=== PATIENT | male | born 1970 | race African-American/Black ===

== ENCOUNTER 2016-05-01 09:19 | Emergency (ER) ==
[2016-05-01 09:46] LABS: MANUAL DIFF NEEDED? NO
[2016-05-01 09:53] LABS: BASO% 0.1 % (0.0-0.8); EOS# 0.01 X1000 (0.0-0.7); EOS% 0.1 % (0.0-10.0); HEMATOCRIT 51.9 % (42.0-52.0); HEMOGLOBIN 17.6 g/dL (14.0-18.0); IMM GRAN# 0.02 X1000 (0.0-0.04); IMM GRAN% 0.2 % (0.0-0.5); LYMPH# 1.81 X1000 (1.2-3.4); LYMPH% 17.7 % (20.5-51.1); MCH 29.2 PG (27-31); MCHC 33.9 g/dL (33-37); MCV 86.2 FL (81-99); MONO# 1.16 X1000 (0.11-0.59); MONO% 11.3 % (1.7-9.3); MPV 10.1 FL (7.4-10.4); NEUT% 70.6 % (42.2-75.2); PLT 280 X1000 (130-400); RBC 6.02 XMIL (4.7-6.1)
[2016-05-01 10:19] LABS: ALBUMIN 5.1 g/dL (3.5-5.0); CALCIUM 10.1 mg/dL (8.8-10.2); POTASSIUM 4.7 mmol/L (3.5-5.1); TOTAL BILIRUBIN 0.35 mg/dL (0.20-1.00); TOTAL PROTEIN 9.9 g/dL (6.3-8.3)
[2016-05-01] MEDS ORDERED: NS 3,000 ML IV ONE ×2 (11:22→14:38)
[2016-05-01] MEDS ORDERED: ZOFRAN IV ONE (11:23)
--- NOTE | 2016-05-01 11:30 | PROVIDER DOCUMENTATION ---
HPI-Abdominal Pain/GI Problem - General Chief Complaint: N/V/D Stated Complaint: N/V/D Time Seen by Provider: 05/01/16 11:21 Source: patient Allergies/Adverse Reactions: Patient Allergies Allergy/AdvReac Type Severity Reaction Status Date / Time No Known Allergies Allergy Verified 03/21/15 17:31 Home Medications: Home Medication List Medication Instructions Recorded Confirmed Last Taken Type No Home Medications 05/01/16 05/01/16 Unknown History - History of Present Illness-ABD Nature of Presenting Problems: Reports to er with cc of n,v,d x 2 days with upper abd cramps. Denies fever, constipation,sob. Abdominal Pain Onset Location: reports: RUQ, LUQ Quality of Pain: reports: aching Severity in ED: reports: moderate Onset/Duration: reports: 2 days ago Timing: reports: still present Associated Symptoms: reports: diarrhea, nausea, vomiting Bruising or Bleeding Gums?: No Similar Symptoms Previously?: No Recently seen or treated by another doctor?: No Review of Systems - Adult - REVIEW OF SYSTEMS - ADULT Constitutional: denies: chills, fever, fatique Eyes: reports: no symptoms reported Ears, Nose, Mouth & Throat: reports: no symptoms reported Cardiovascular: denies: chest pain, irregular heart rate, orthopnea Respiratory: denies: cough, shortness of breath, wheezing Gastrointestinal: reports: abdominal pain, diarrhea, nausea, vomiting Genitourinary: denies: dysuria, flank pain, frequent UTI's, hematuria Musculoskeletal: reports: no symptoms reported Integumentary: reports: no symptoms reported Neurological: reports: no symptoms reported Psychiatric: reports: no symptoms reported Endocrine: reports: no symptoms reported Hematologic/Lymphatic: reports: no symptoms reported Allergic/Immunologic: reports: no symptoms reported All Other Systems: Reviewed and Negative Past History - Adult - PAST MEDICAL HISTORY-ADULT Review of Records: reports: Nursing Assessment Review, Medications Reviewed Major Childhood Illnesses: reports: denies history Cardiovascular: reports: denies history Respiratory: reports: denies history Gastrointestinal: reports: denies history Obstetrical/Gynecological: reports: denies history Genitourinary: reports: denies history Musculoskeletal: reports: denies history Neurological: reports: denies history Endocrine/Immune: reports: denies history Other Conditions: reports: denies history - IMMUNIZATION STATUS Childhood Immunizations: See Nurse Assessment Flu Vaccine: See Nurse Assessment - FAMILY HISTORY Family History: reviewed, not pertinent - SOCIAL HISTORY Smoking: cigarettes, greater than 1 pack/day Provider spent 3-5 mins advising pt. on dangers of tobacco.: Discussed manners to quit use, and f/u contacts for add'l counseling. Physical Exam-General - PHYSICAL EXAM-ADULT Initial Vital Signs Reviewed: Yes - CONSTITUTIONAL General Appearance: appears well, alert, no apparent distress - EYES Eyes: PERRL/EOMI - HEAD, EARS, NOSE, MOUTH & THROAT HENMT: normal ENT inspection, TMs normal, pharynx normal. negative: moist mucous membranes (dry) - NECK Neck: non-tender, full range of motion, supple, normal inspection - RESPIRATORY Respiratory: chest non-tender, lungs clear, normal breath sounds, no pleuratic chest pain, no respiratory distress, no accessory muscle use - CARDIOVASCULAR Cardiovascular: normal peripheral pulses, tachycardia - CHEST (BREASTS) Chest/Breast: other (muscle spasms lower chest) - GASTROINTESTINAL (ABDOMEN) Abdominal Exam: normal bowel sounds, soft, no organomegaly, no pulsatile mass, tenderness (ttp upper abd) - MUSCULOSKELETAL Back Exam: normal inspection, no CVA tenderness, no vertebral tenderness Extremity: normal range of motion, non-tender - SKIN Integumentary: normal color, normal turgor, warm/dry - PSYCHIATRIC Psych/Mental Status: normal mood/affect, normal thought content, normal thought process, oriented x 3 Progress - PLAN OF CARE/RESULTS Progress/Plan/Lab Results: Orders Category Date Time Status US ABDOMEN-COMPLETE [US] Stat Exams 05/01/16 11:25 Ordered AMYLASE [CHEM] Stat Lab 05/01/16 09:27 Completed CBC WITH ELECTRONIC DIFF [HEME] Stat Lab 05/01/16 09:27 Completed COMPREHENSIVE METABOLIC PANEL [CHEM] Stat Lab 05/01/16 09:27 Completed LIPASE [CHEM] Stat Lab 05/01/16 09:27 Completed UA Reflex [URINALYSIS W/POSS RFLX CULT] [URINALYSIS] Lab 05/01/16 09:22 Uncollected Stat 0.9% Sodium Chloride Inj [Ns] 3,000 ml Med 05/01/16 11:22 Active IV 999 mls/hr Ondansetron [Zofran] Med 05/01/16 11:23 Discontinued 4 mg IV NOW ONE Vital Signs - 24 hr 05/01/16 09:23 Temperature 97.8 F Pulse Rate 124 H Respiratory 18 Rate Blood Pressure 128/94 O2 Sat by Pulse 100 Oximetry Laboratory Tests 05/01/16 05/01/16 05/01/16 09:27 09:27 12:48 WBC 10.23 RBC 6.02 Hgb 17.6 Hct 51.9 MCV 86.2 MCH 29.2 MCHC 33.9 RDW Std Deviation 14.4 Plt Count 280 MPV 10.1 Immature Gran % (Auto) 0.2 Neut % (Auto) 70.6 Lymph % (Auto) 17.7 L [place] % (Auto) 11.3 H Eos % (Auto) 0.1 Baso % (Auto) 0.1 Immature Gran # (Auto) 0.02 Neut # (Auto) 7.22 H Lymph # (Auto) 1.81 [place] # (Auto) 1.16 H Eos # (Auto) 0.01 Baso # (Auto) 0.01 Sodium 138 Potassium 4.7 Chloride 93 L Carbon Dioxide 22 L Anion Gap 23 BUN 35 H Creatinine 3.4 H Estimated GFR/1.73 m2 24 BUN/Creatinine Ratio 10 Glucose 133 H Calculated Osmolality 286 Calcium 10.1 Total Bilirubin 0.35 AST 19 ALT 17 Alkaline Phosphatase 126 H Total Protein 9.9 H Albumin 5.1 H Globulin 4.8 Albumin/Globulin Ratio 1.1 Amylase 199 Lipase 99 H Urine Source CLEAN CATCH Urine Color YELLOW Urine Turbidity HAZY Urine pH 5.0 Ur Specific [place] 1.022 Urine Protein 50 A Ur Glucose (Stick) NEGATIVE Ur Ketones (Stick) TRACE A Urine Blood SMALL A Urine Nitrite NEGATIVE Urine Bilirubin SMALL A Urobilinogen Dipstick 2 A Urine Leukocytes MODERATE A Urine WBC (Auto) 10-20 A Urine RBC (Auto) <10 U Epithel Cells (Auto) <10 Urine Bacteria (Auto) NEGATIVE Laboratory Tests 05/01/16 05/01/16 05/01/16 09:27 09:27 12:48 WBC 10.23 RBC 6.02 Hgb 17.6 Hct 51.9 MCV 86.2 MCH 29.2 MCHC 33.9 RDW Std Deviation 14.4 Plt Count 280 MPV 10.1 Immature Gran % (Auto) 0.2 Neut % (Auto) 70.6 Lymph % (Auto) 17.7 L [place] % (Auto) 11.3 H Eos % (Auto) 0.1 Baso % (Auto) 0.1 Immature Gran # (Auto) 0.02 Neut # (Auto) 7.22 H Lymph # (Auto) 1.81 [place] # (Auto) 1.16 H Eos # (Auto) 0.01 Baso # (Auto) 0.01 Sodium 138 Potassium 4.7 Chloride 93 L Carbon Dioxide 22 L Anion Gap 23 BUN 35 H Creatinine 3.4 H Estimated GFR/1.73 m2 24 BUN/Creatinine Ratio 10 Glucose 133 H Calculated Osmolality 286 Calcium 10.1 Total Bilirubin 0.35 AST 19 ALT 17 Alkaline Phosphatase 126 H Total Protein 9.9 H Albumin 5.1 H Globulin 4.8 Albumin/Globulin Ratio 1.1 Amylase 199 Lipase 99 H Urine Source CLEAN CATCH Urine Color YELLOW Urine Turbidity HAZY Urine pH 5.0 Ur Specific [place] 1.022 Urine Protein 50 A Ur Glucose (Stick) NEGATIVE Ur Ketones (Stick) TRACE A Urine Blood SMALL A Urine Nitrite NEGATIVE Urine Bilirubin SMALL A Urobilinogen Dipstick 2 A Urine Leukocytes MODERATE A Urine WBC (Auto) 10-20 A Urine RBC (Auto) <10 U Epithel Cells (Auto) <10 Urine Bacteria (Auto) NEGATIVE Urine Crystals NONE SEEN Small Round Cells NONE SEEN Urine Casts Urine Yeast-like Cells NONE SEEN 05/01/16 14:00 WBC RBC Hgb Hct MCV MCH MCHC RDW Std Deviation Plt Count MPV Immature Gran % (Auto) Neut % (Auto) Lymph % (Auto) [place] % (Auto) Eos % (Auto) Baso % (Auto) Immature Gran # (Auto) Neut # (Auto) Lymph # (Auto) [place] # (Auto) Eos # (Auto) Baso # (Auto) Sodium 139 Potassium 4.1 Chloride 104 Carbon Dioxide 18 L Anion Gap 17 BUN 34 H Creatinine 2.3 H Estimated GFR/1.73 m2 38 BUN/Creatinine Ratio 15 Glucose 94 Calculated Osmolality 285 Calcium Total Bilirubin AST ALT Alkaline Phosphatase Total Protein Albumin Globulin Albumin/Globulin Ratio Amylase Lipase Urine Source Urine Color Urine Turbidity Urine pH Ur Specific [place] Urine Protein Ur Glucose (Stick) Ur Ketones (Stick) Urine Blood Urine Nitrite Urine Bilirubin Urobilinogen Dipstick Urine Leukocytes Urine WBC (Auto) Urine RBC (Auto) U Epithel Cells (Auto) Urine Bacteria (Auto) Urine Crystals Small Round Cells Urine Casts Urine Yeast-like Cells Orders Category Date Time Status US ABDOMEN-COMPLETE [US] Stat Exams 05/01/16 11:25 Completed AMYLASE [CHEM] Stat Lab 05/01/16 09:27 Completed BMP [BASIC METABOLIC PANEL] [CHEM] Stat Lab 05/01/16 14:00 Completed CBC WITH ELECTRONIC DIFF [HEME] Stat Lab 05/01/16 09:27 Completed CMP [COMPREHENSIVE METABOLIC PANEL] [CHEM] Stat Lab 05/01/16 16:22 Uncollected COMPREHENSIVE METABOLIC PANEL [CHEM] Stat Lab 05/01/16 09:27 Completed LIPASE [CHEM] Stat Lab 05/01/16 09:27 Completed UA Reflex [URINALYSIS W/POSS RFLX CULT] [URINALYSIS] Lab 05/01/16 12:48 Completed Stat URINE CULTURE [RM] Routine Lab 05/01/16 13:53 Received URINE MANUAL MICROSCOPIC [URINALYSIS] Stat Lab 05/01/16 12:48 Completed 0.9% Sodium Chloride Inj [Ns] 3,000 ml Med 05/01/16 11:22 Discontinued IV 999 mls/hr 0.9% Sodium Chloride Inj [Ns] 3,000 ml Med 05/01/16 14:38 Active IV 999 mls/hr Loperamide [Imodium] Med 05/01/16 12:27 Discontinued 4 mg PO NOW ONE Ns 1000 ml IV Bolus X1 Med 05/01/16 16:22 Ordered 0.9% Sodium Chloride Inj [Ns] 1,000 ml IV 999 mls/hr Ondansetron [Zofran] Med 05/01/16 11:23 Discontinued 4 mg IV NOW ONE Laboratory Tests 05/01/16 05/01/16 05/01/16 09:27 09:27 12:48 WBC 10.23 RBC 6.02 Hgb 17.6 Hct 51.9 MCV 86.2 MCH 29.2 MCHC 33.9 RDW Std Deviation 14.4 Plt Count 280 MPV 10.1 Immature Gran % (Auto) 0.2 Neut % (Auto) 70.6 Lymph % (Auto) 17.7 L [place] % (Auto) 11.3 H Eos % (Auto) 0.1 Baso % (Auto) 0.1 Immature Gran # (Auto) 0.02 Neut # (Auto) 7.22 H Lymph # (Auto) 1.81 [place] # (Auto) 1.16 H Eos # (Auto) 0.01 Baso # (Auto) 0.01 Sodium 138 Potassium 4.7 Chloride 93 L Carbon Dioxide 22 L Anion Gap 23 BUN 35 H Creatinine 3.4 H Estimated GFR/1.73 m2 24 BUN/Creatinine Ratio 10 Glucose 133 H Calculated Osmolality 286 Calcium 10.1 Total Bilirubin 0.35 AST 19 ALT 17 Alkaline Phosphatase 126 H Total Protein 9.9 H Albumin 5.1 H Globulin 4.8 Albumin/Globulin Ratio 1.1 Amylase 199 Lipase 99 H Urine Source CLEAN CATCH Urine Color YELLOW Urine Turbidity HAZY Urine pH 5.0 Ur Specific [place] 1.022 Urine Protein 50 A Ur Glucose (Stick) NEGATIVE Ur Ketones (Stick) TRACE A Urine Blood SMALL A Urine Nitrite NEGATIVE Urine Bilirubin SMALL A Urobilinogen Dipstick 2 A Urine Leukocytes MODERATE A Urine WBC (Auto) 10-20 A Urine RBC (Auto) <10 U Epithel Cells (Auto) <10 Urine Bacteria (Auto) NEGATIVE Urine Crystals NONE SEEN Small Round Cells NONE SEEN Urine Casts Urine Yeast-like Cells NONE SEEN 05/01/16 14:00 WBC RBC Hgb Hct MCV MCH MCHC RDW Std Deviation Plt Count MPV Immature Gran % (Auto) Neut % (Auto) Lymph % (Auto) [place] % (Auto) Eos % (Auto) Baso % (Auto) Immature Gran # (Auto) Neut # (Auto) Lymph # (Auto) [place] # (Auto) Eos # (Auto) Baso # (Auto) Sodium 139 Potassium 4.1 Chloride 104 Carbon Dioxide 18 L Anion Gap 17 BUN 34 H Creatinine 2.3 H Estimated GFR/1.73 m2 38 BUN/Creatinine Ratio 15 Glucose 94 Calculated Osmolality 285 Calcium 8.2 L D Total Bilirubin AST ALT Alkaline Phosphatase Total Protein Albumin Globulin Albumin/Globulin Ratio Amylase Lipase Urine Source Urine Color Urine Turbidity Urine pH Ur Specific [place] Urine Protein Ur Glucose (Stick) Ur Ketones (Stick) Urine Blood Urine Nitrite Urine Bilirubin Urobilinogen Dipstick Urine Leukocytes Urine WBC (Auto) Urine RBC (Auto) U Epithel Cells (Auto) Urine Bacteria (Auto) Urine Crystals Small Round Cells Urine Casts Urine Yeast-like Cells - ULTRASOUND (By Radiology) 1 US Study: Abdomen Impression: Abnormal (several simple appearing renal cysts as described. Essentially unremarkable, otherwise.) Departure - Departure Time of Disposition Order: 14:37 DIAGNOSIS: Dehydration, Gastroenteritis Disposition: HOME 01 Certified Medical Emergency: Emergent Condition: Stable Additional Instructions: Follow up with pcp ED Follow Up Instructions: You have been treated by a care provider in the Emergency Department. These instructions are being provided to you so you can have an understanding of how to care for yourself upon discharge. Upon discharge from the Emergency Department, you are responsible for making arrangements for follow-up care by a physician of your choice. Take all prescribed medications as directed. Return to the Emergency Department immediately for any new or worsening symptoms. You may call the Physician Referral phone number at [phone] to obtain a list of Physicians who are taking new patients. Referrals: None,PCP [Primary Care Provider] - Attestation - Scribe Verification/Attestation Scribe:: Nirmal Baez Acting as Scribe for:: Devin Rich Scribe documention review:: This chart was documented by a scribe and accurately reflects the service the provider performed and the decisions made by the provider. Physician Attestation - Physician Attestation I, the provider, attest to the following statement:: Devin Rich Physician documentation Attestation:: This documentation recorded by the scribe accurately reflects the service I personally performed and the decisions made by me.
[2016-05-01] MEDS ORDERED: IMODIUM PO ONE (12:27)
[2016-05-01 13:08] LABS: URINE SOURCE CLEAN CATCH
[2016-05-01 13:16] LABS: BILIRUBIN URINE SMALL (NEGATIVE); BLOOD URINE SMALL (NEGATIVE); COLOR YELLOW; GLUCOSE URINE NEGATIVE (NEGATIVE); LEUKOCYTES URINE MODERATE (NEGATIVE); NITRITE URINE NEGATIVE (NEGATIVE); PROTEIN URINE 50 mg/dL (NEGATIVE); SP GRAVITY URINE 1.022; TURBIDITY URINE HAZY (CLEAR); UROBILINOGEN URINE 2 mg/dL (NORMAL)
[2016-05-01 13:18] LABS: URINE MICRO REVIEW NEEDED? YES
[2016-05-01 13:22] LABS: UR EPITHELIAL CELLS <10 /HPF (<10); URINE BACTERIA NEGATIVE /HPF; URINE CULTURE NEEDED? YES; URINE RBC <10 /HPF (<10)
[2016-05-01 13:41] LABS: URINE CRYSTALS NONE SEEN; URINE SMALL ROUND CELLS NONE SEEN
--- NOTE | 2016-05-01 13:53 | Diag Imaging Result Document ---
PROCEDURE NAME: US ABDOMEN-COMPLETE - 05/01/2016 COMPLETE ABDOMINAL ULTRASOUND: COMPARISON: None available. FINDINGS: The gallbladder appears normal with no stones, wall thickening, or pericholecystic fluid. The common bile duct is normal in diameter. Sonographic Garcia's sign was reported to be negative. The liver, visualized pancreas, spleen, aorta, and IVC are grossly unremarkable as imaged. There are several simple appearing renal cysts involving the left kidney and 1 involving the right kidney. The right renal cyst measures up to 1.3 cm and the largest left renal cyst measures up to 3.1 cm in the greatest dimensions. No discrete hydronephrosis or solid renal mass is identified. IMPRESSION: Several simple-appearing renal cysts as described. Essentially unremarkable, otherwise.
[2016-05-01 14:30] LABS: POTASSIUM 4.1 mmol/L (3.5-5.1)
[2016-05-01 14:52] LABS: CALCIUM 8.2 mg/dL (8.8-10.2)
[2016-05-01] MEDS ORDERED: NS 1,000 ML IV ONE (16:22)
[2016-05-01 17:14] LABS: ALBUMIN 3.3 g/dL (3.5-5.0); CALCIUM 7.2 mg/dL (8.8-10.2); TOTAL BILIRUBIN 0.26 mg/dL (0.20-1.00); TOTAL PROTEIN 6.2 g/dL (6.3-8.3)
[2016-05-01 17:27] VITALS: BP 135/78
== END 2016-05-01 18:25 | disposition home or self-care (01) ==
LOC: ED 09:19
DX: K52.9 Noninfective gastroenteritis and colitis, unspecified (principal); E86.0 Dehydration; R11.2 Nausea with vomiting, unspecified; R19.7 Diarrhea, unspecified; R10.11 Right upper quadrant pain; R10.12 Left upper quadrant pain; R00.0 Tachycardia, unspecified; M62.838 Other muscle spasm; R10.819 Abdominal tenderness, unspecified site; F17.210 Nicotine dependence, cigarettes, uncomplicated; Z71.6 Tobacco abuse counseling
CPT/HCPCS: 76700; 80048; 80053; 81001; 82150; 83690; 85025; 87077; 87088; J2405; J7030

== ENCOUNTER 2016-05-04 09:43 | Emergency (ER) ==
[2016-05-04] MEDS ORDERED: BENADRYL IM ONE (10:16)
[2016-05-04] MEDS ORDERED: DECADRON IM ONE (10:16)
[2016-05-04] MEDS ORDERED: PEPCID PO ONE (10:16)
[2016-05-04] MEDS ORDERED: EPINEPHRINE SUBQ ONE (10:16)
--- NOTE | 2016-05-04 10:22 | PROVIDER DOCUMENTATION ---
HPI-Rash/Wound/ReCheck - General Source: patient - History of Present Illness-Dermatology Location: reports: face, hands Quality: reports: none Severity: reports: moderate Onset/Duration: reports: just prior to arrival Timing: reports: still present Locality of Occurance: Home Similar Symptoms Previously?: No Recently seen or treated by another doctor?: No <Nirmal Baez - Last Filed: 05/04/16 10:28> <Rohan Fountain - Last Filed: 05/04/16 10:50> - General Chief Complaint: Allergic Reaction Stated Complaint: POSS ALLERGIC REACTION TO MEDICATION Time Seen by Provider: 05/04/16 10:02 Allergies/Adverse Reactions: Allergies Allergy/AdvReac Type Severity Reaction Status Date / Time No Known Allergies Allergy Verified 03/21/15 17:31 Home Medications: Home Medication List Medication Instructions Recorded Confirmed Last Taken Type Ondansetron [Zofran Odt] 4 mg PO 4XDAY PRN PRN #20 05/01/16 Unknown Rx tab.rapdis Famotidine [Pepcid] 20 mg PO DAILY #20 tablet 05/04/16 Unknown Rx Hydroxyzine [Atarax] 50 mg PO TID PRN #10 tablet 05/04/16 Unknown Rx Prednisone 20 mg PO DAILY #6 tablet 05/04/16 Unknown Rx - History of Present Illness-Dermatology Nature of Presenting Problem: This pt presents to ED with c/o bilateral periorbital edema and tingling in his feet that started approx 0930 after taking a 220mg aleve tablet. Denies difficulty swallowing or managing oral secretions. No anbioedema. No respiratory distress. (Rohan Fountain) Review of Systems - Adult - REVIEW OF SYSTEMS - ADULT Constitutional: denies: chills, fever, fatique Eyes: reports: no symptoms reported Ears, Nose, Mouth & Throat: reports: see HPI. denies: ear pain, sinus problem, throat pain Cardiovascular: denies: chest pain, irregular heart rate, orthopnea, syncope Respiratory: reports: no symptoms reported Gastrointestinal: reports: no symptoms reported Genitourinary: reports: no symptoms reported Musculoskeletal: reports: no symptoms reported Integumentary: reports: no symptoms reported Neurological: reports: no symptoms reported Psychiatric: reports: no symptoms reported Endocrine: reports: no symptoms reported Hematologic/Lymphatic: reports: no symptoms reported Allergic/Immunologic: reports: see HPI, allergic reactions. denies: food allergy, frequent infections, hay fever All Other Systems: Reviewed and Negative <Nirmal Baez - Last Filed: 05/04/16 10:28> Past History - Adult - PAST MEDICAL HISTORY-ADULT Review of Records: reports: Nursing Assessment Review, Medications Reviewed Major Childhood Illnesses: reports: denies history Respiratory: reports: bronchitis - IMMUNIZATION STATUS Childhood Immunizations: See Nurse Assessment Flu Vaccine: See Nurse Assessment - FAMILY HISTORY Family History: reviewed, not pertinent - SOCIAL HISTORY Smoking: cigarettes, greater than 1 pack/day Provider spent 3-5 mins advising pt. on dangers of tobacco.: Discussed manners to quit use, and f/u contacts for add'l counseling. Substance Use: none/never <Nirmal Baez - Last Filed: 05/04/16 10:28> - PAST MEDICAL HISTORY-ADULT Major Childhood Illnesses: reports: denies history Cardiovascular: reports: denies history Respiratory: reports: denies history Gastrointestinal: reports: denies history Obstetrical/Gynecological: reports: denies history Genitourinary: reports: denies history Musculoskeletal: reports: denies history Neurological: reports: denies history Endocrine/Immune: reports: denies history Other Conditions: reports: denies history - IMMUNIZATION STATUS Childhood Immunizations: See Nurse Assessment Flu Vaccine: See Nurse Assessment - FAMILY HISTORY Family History: reviewed, not pertinent <Rohan Fountain - Last Filed: 05/04/16 10:50> Physical Exam-General - PHYSICAL EXAM-ADULT Initial Vital Signs Reviewed: Yes - CONSTITUTIONAL General Appearance: appears well, alert, no apparent distress - EYES Eyes: PERRL/EOMI, other (mild periorbital swelling) - HEAD, EARS, NOSE, MOUTH & THROAT HENMT: moist mucous membranes, other (patent air way negative swelling) - NECK Neck: non-tender, full range of motion, supple, normal inspection - RESPIRATORY Respiratory: chest non-tender, lungs clear, normal breath sounds, no pleuratic chest pain, no respiratory distress, no accessory muscle use. negative: stridor - CARDIOVASCULAR Cardiovascular: regular rate, rhythm, no edema, no gallop, no JVD, no murmur - MUSCULOSKELETAL Back Exam: normal inspection, no CVA tenderness, no vertebral tenderness Extremity: normal range of motion, non-tender - SKIN Integumentary: normal color, normal turgor, warm/dry - PSYCHIATRIC Psych/Mental Status: normal mood/affect, normal thought content, normal thought process, oriented x 3 <Nirmal Baez - Last Filed: 05/04/16 10:28> Progress <Nirmal Baez - Last Filed: 05/04/16 10:28> <Rohan Fountain - Last Filed: 05/04/16 10:50> - PLAN OF CARE/RESULTS Progress/Plan/Lab Results: Orders Category Date Time Status Dexamethasone [Decadron] Med 05/04/16 10:16 Discontinued 10 mg IM NOW ONE Diphenhydramine [Benadryl] Med 05/04/16 10:16 Discontinued 25 mg IM NOW ONE Epinephrine Med 05/04/16 10:16 Discontinued 0.3 mg SUBQ NOW ONE Famotidine [Pepcid] Med 05/04/16 10:16 Discontinued 40 mg PO NOW ONE Vital Signs - 24 hr 05/04/16 09:51 Temperature 98.0 F Pulse Rate 107 H Respiratory 20 Rate Blood Pressure 150/104 O2 Sat by Pulse 100 Oximetry (Nirmal Baez) Orders Category Date Time Status Dexamethasone [Decadron] Med 05/04/16 10:16 Discontinued 10 mg IM NOW ONE Diphenhydramine [Benadryl] Med 05/04/16 10:16 Discontinued 25 mg IM NOW ONE Epinephrine Med 05/04/16 10:16 Discontinued 0.3 mg SUBQ NOW ONE Famotidine [Pepcid] Med 05/04/16 10:16 Discontinued 40 mg PO NOW ONE Vital Signs Temp Pulse Resp BP Pulse Ox 05/04/16 09:51 98.0 F 107 H 20 150/104 100 No Known Allergies Allergy (Verified 03/21/15 17:31) Ondansetron [Zofran Odt] 4 mg PO 4XDAY PRN PRN #20 tab.rapdis 05/01/16 (Rohan Fountain) Departure <Nirmal Baez - Last Filed: 05/04/16 10:28> - Departure Time of Disposition Order: 10:44 Certified Medical Emergency: Emergent <Rohan Fountain - Last Filed: 05/04/16 10:50> - Departure DIAGNOSIS: Acute allergic reaction Qualifiers: Encounter type: initial encounter Qualified Code(s): T78.40XA - Allergy, unspecified, initial encounter Disposition: HOME 01 Condition: Good Additional Instructions: Take medication as prescribed. Follow up with your primary care provider. Return to the ER for any new or worsening symptoms. ED Follow Up Instructions: You have been treated by a care provider in the Emergency Department. These instructions are being provided to you so you can have an understanding of how to care for yourself upon discharge. Upon discharge from the Emergency Department, you are responsible for making arrangements for follow-up care by a physician of your choice. Take all prescribed medications as directed. Return to the Emergency Department immediately for any new or worsening symptoms. You may call the Physician Referral phone number at [phone] to obtain a list of Physicians who are taking new patients. Prescriptions: Hydroxyzine [Atarax] 50 mg PO TID PRN #10 tablet PRN Reason: Itching Famotidine [Pepcid] 20 mg PO DAILY #20 tablet Prednisone 20 mg PO DAILY #6 tablet Attestation - Scribe Verification/Attestation Scribe:: Nirmal Baez Acting as Scribe for:: Rohan Fountain Scribe documention review:: This chart was documented by a scribe and accurately reflects the service the provider performed and the decisions made by the provider. <Nirmal Baez - Last Filed: 05/04/16 10:28> - Physician/ GERARD Attestation Patient care was provided by Advanced Practice Provider:: Yes Advanced Practice Provider:: Rohan Fountain Advanced Practice Provider documentation review:: The Mid-level provider documentation, treatment plan and medical decision making was reviewed by the physician who agrees with all treatment and medical decision making by the P. <Rohan Fountain - Last Filed: 05/04/16 10:50> Physician Attestation
[2016-05-04 11:11] VITALS: BP 145/90
== END 2016-05-04 11:15 | disposition home or self-care (01) ==
LOC: ED 09:43
DX: T78.40XA Allergy, unspecified, initial encounter (principal); R20.2 Paresthesia of skin; R22.0 Localized swelling, mass and lump, head; F17.210 Nicotine dependence, cigarettes, uncomplicated; Z71.6 Tobacco abuse counseling
CPT/HCPCS: 96372; J0171; J1200

== ENCOUNTER 2016-05-11 08:24 | Inpatient (IN) ==
[2016-05-11 09:43] LABS: BASO% 0.2 % (0.0-0.8); EOS# 0.03 X1000 (0.0-0.7); EOS% 0.3 % (0.0-10.0); HEMATOCRIT 52.5 % (42.0-52.0); HEMOGLOBIN 17.9 g/dL (14.0-18.0); IMM GRAN# 0.03 X1000 (0.0-0.04); IMM GRAN% 0.3 % (0.0-0.5); LYMPH# 1.89 X1000 (1.2-3.4); LYMPH% 18.2 % (20.5-51.1); MANUAL DIFF NEEDED? NO; MCH 28.4 PG (27-31); MCHC 34.1 g/dL (33-37); MCV 83.3 FL (81-99); MONO# 1.13 X1000 (0.11-0.59); MONO% 10.9 % (1.7-9.3); MPV 10.2 FL (7.4-10.4); NEUT% 70.1 % (42.2-75.2); PLT 470 X1000 (130-400)
[2016-05-11 10:18] LABS: ALBUMIN 4.6 g/dL (3.5-5.0); POTASSIUM 4.6 mmol/L (3.5-5.1); TOTAL BILIRUBIN 0.71 mg/dL (0.20-1.00)
[2016-05-11] MEDS ORDERED: NS 1,000 ML IV ONE (10:49)
[2016-05-11 11:15] LABS: URINE SOURCE CLEAN CATCH
[2016-05-11 11:21] LABS: BILIRUBIN URINE NEGATIVE (NEGATIVE); BLOOD URINE MODERATE (NEGATIVE); COLOR YELLOW; GLUCOSE URINE NEGATIVE (NEGATIVE); LEUKOCYTES URINE LARGE (NEGATIVE); NITRITE URINE NEGATIVE (NEGATIVE); PROTEIN URINE 50 mg/dL (NEGATIVE); SP GRAVITY URINE 1.019; TURBIDITY URINE HAZY (CLEAR); UROBILINOGEN URINE NORMAL (NORMAL)
[2016-05-11 11:29] LABS: UR EPITHELIAL CELLS <10 /HPF (<10); URINE BACTERIA 2+ /HPF; URINE CULTURE NEEDED? YES; URINE MICRO REVIEW NEEDED? YES; URINE RBC <10 /HPF (<10); URINE WBC TNTC /HPF (<10)
[2016-05-11 11:30] LABS: UR AMPHETAMINES QUAL NONE DETECTED (NONE DETECT); UR BARBITUATES QUAL NONE DETECTED (NONE DETECT); UR BENZODIAZEPIN QUAL NONE DETECTED (NONE DETECT); UR CANNABINOIDS QUAL NONE DETECTED (NONE DETECT); UR COCAINE QUAL NONE DETECTED (NONE DETECT); UR METHADONE QUAL NONE DETECTED (NONE DETECT); UR OPIATES QUAL NONE DETECTED (NONE DETECT); UR OXYCODONE QUAL NONE DETECTED (NONE DETECT); UR PCP QUAL NONE DETECTED (NONE DETECT)
--- NOTE | 2016-05-11 11:32 | PROVIDER DOCUMENTATION ---
HPI-Abdominal Pain/GI Problem - General Chief Complaint: Abdominal Pain Stated Complaint: ABD PAIN,NAUSEA Time Seen by Provider: 05/11/16 09:39 Source: patient Allergies/Adverse Reactions: Patient Allergies Allergy/AdvReac Type Severity Reaction Status Date / Time No Known Allergies Allergy Verified 05/11/16 11:52 Home Medications: Home Medication List Medication Instructions Recorded Confirmed Last Taken Type No Home Medications 05/11/16 05/11/16 Unknown History - History of Present Illness-ABD Nature of Presenting Problems: 45 y/o AAM seen here 10 days ago and 3 days ago for similar things, c/o abdominal pain. Pain was in the left lower quadrant at one point and the luq radiating to the RUQ at one point, none now. Has been feeling weak, fatigued, having nausea and vomiting. Had abdominal US performed which showed renal calculi, but otherwise NAD. Denies vomiting, has been having decreased BM. Abdominal Pain Onset Location: reports: generalized abdomen Pain Radiation: reports: no radiation Quality of Pain: reports: aching Severity in ED: reports: mild Onset/Duration: reports: other (10 days ago) Timing: reports: still present, intermittent Review of Systems - Adult - REVIEW OF SYSTEMS - ADULT Constitutional: reports: no symptoms reported. denies: chills, fever, fatique Eyes: reports: no symptoms reported. denies: decreased vision, blurred vision, double vision, eye pain Ears, Nose, Mouth & Throat: reports: no symptoms reported. denies: ear pain, nose pain, throat pain Cardiovascular: reports: no symptoms reported. denies: chest pain, irregular heart rate, palpitations Respiratory: reports: no symptoms reported. denies: cough, shortness of breath , wheezing Gastrointestinal: reports: see HPI, abdominal pain, constipation, nausea, poor appetite. denies: vomiting Genitourinary: reports: no symptoms reported. denies: dysuria, discharge, frequency, incontinence Musculoskeletal: reports: see HPI, muscle aches Integumentary: reports: no symptoms reported. denies: rash Neurological: reports: no symptoms reported. denies: dizziness/vertigo, headache/migraines Psychiatric: reports: no symptoms reported Endocrine: reports: no symptoms reported Hematologic/Lymphatic: reports: no symptoms reported Allergic/Immunologic: reports: no symptoms reported All Other Systems: Reviewed and Negative Past History - Adult - PAST MEDICAL HISTORY-ADULT Review of Records: reports: Old Records Reviewed, Nursing Assessment Review, Medications Reviewed, Social history reviewed & non-contributory. Major Childhood Illnesses: reports: denies history Cardiovascular: reports: denies history Respiratory: reports: denies history Gastrointestinal: reports: denies history Genitourinary: reports: denies history Musculoskeletal: reports: denies history Neurological: reports: denies history Endocrine/Immune: reports: denies history Other Conditions: reports: denies history - IMMUNIZATION STATUS Childhood Immunizations: See Nurse Assessment Flu Vaccine: See Nurse Assessment - FAMILY HISTORY Family History: reviewed, not pertinent - SOCIAL HISTORY Smoking: greater than 1 pack/day Provider spent 3-5 mins advising pt. on dangers of tobacco.: Discussed manners to quit use, and f/u contacts for add'l counseling. Substance Use: none/never Alcohol Use Frequency: never Physical Exam-General - PHYSICAL EXAM-ADULT Initial Vital Signs Reviewed: Yes - CONSTITUTIONAL General Appearance: appears well, alert, no apparent distress - EYES Eyes: PERRL/EOMI, pink conjunctivae - HEAD, EARS, NOSE, MOUTH & THROAT HENMT: normocephalic/atraumatic, normal ENT inspection, other (dry mucous membranes) - NECK Neck: non-tender, full range of motion, supple, normal inspection - RESPIRATORY Respiratory: chest non-tender, lungs clear, normal breath sounds, no pleuratic chest pain, no respiratory distress, no accessory muscle use. negative: respiratory distress, decreased breath sounds, accessory muscle use, crackles, rales, rhonchi, stridor, wheezing - CARDIOVASCULAR Cardiovascular: normal peripheral pulses, regular rate, rhythm - GASTROINTESTINAL (ABDOMEN) Abdominal Exam: normal bowel sounds, non tender, soft, no organomegaly, no pulsatile mass. negative: abdominal bruit, abnormal bowel sounds, distended, guarding, rigid, rebound, tenderness - MUSCULOSKELETAL Extremity: normal gait Peripheral Pulses: dorsalis-pedis (R): 2+, dorsalis-pedis (L): 2+ - SKIN Integumentary: normal color, normal turgor, warm/dry - NEUROLOGIC Neurologic: grossly normal, no motor/sensory deficits - PSYCHIATRIC Psych/Mental Status: normal mood/affect, normal thought content, normal thought process, oriented x 3 Progress - PLAN OF CARE/RESULTS Progress/Plan/Lab Results: Vital Signs Temp Pulse Resp BP Pulse Ox 05/11/16 09:09 97.7 F 104 H 20 188/107 99 No Known Allergies Allergy (Verified 05/11/16 11:52) No Home Medications 05/11/16 Dietary Diet NPO Start SatMay 11 914 I&O 05/10/16 05/11/16 05/12/16 06:59 06:59 06:59 Output Total 30 Balance -30 Laboratory 05/11/16 05/11/16 05/11/16 11:00 11:00 09:12 WBC 10.40 RBC 6.30 H Hgb 17.9 Hct 52.5 H MCV 83.3 MCH 28.4 MCHC 34.1 RDW Std Deviation 13.4 Plt Count 470 H MPV 10.2 Immature Gran % (Auto) 0.3 Neut % (Auto) 70.1 Lymph % (Auto) 18.2 L [place] % (Auto) 10.9 H Eos % (Auto) 0.3 Baso % (Auto) 0.2 Immature Gran # (Auto) 0.03 Neut # (Auto) 7.30 H Lymph # (Auto) 1.89 [place] # (Auto) 1.13 H Eos # (Auto) 0.03 Baso # (Auto) 0.02 Sodium Potassium Chloride Carbon Dioxide Anion Gap BUN Creatinine Estimated GFR/1.73 m2 BUN/Creatinine Ratio Glucose Calculated Osmolality Calcium Total Bilirubin AST ALT Alkaline Phosphatase Total Protein Albumin Globulin Albumin/Globulin Ratio Amylase Lipase Urine Source CLEAN CATCH Urine Color YELLOW Urine Turbidity HAZY Urine pH 5.0 Ur Specific [place] 1.019 Urine Protein 50 A Ur Glucose (Stick) NEGATIVE Ur Ketones (Stick) NEGATIVE Urine Blood MODERATE A Urine Nitrite NEGATIVE Urine Bilirubin NEGATIVE Urobilinogen Dipstick NORMAL Urine Leukocytes LARGE A Urine WBC (Auto) TNTC A Urine RBC (Auto) <10 U Epithel Cells (Auto) <10 Urine Bacteria (Auto) 2+ Urine Crystals Not Reportable Small Round Cells Not Reportable Urine Casts WHITE CELL PRESENT Urine Yeast-like Cells NONE SEEN Urine Opiates Screen NONE DETECTED Ur Oxycodone Screen NONE DETECTED Ur Methadone, Qual NONE DETECTED Ur Barbiturates Screen NONE DETECTED Ur Phencyclidine Scrn NONE DETECTED Ur Amphetamines Screen NONE DETECTED U Benzodiazepines Scrn NONE DETECTED Urine Cocaine Screen NONE DETECTED U Cannabinoids Screen NONE DETECTED 05/11/16 09:12 WBC RBC Hgb Hct MCV MCH MCHC RDW Std Deviation Plt Count MPV Immature Gran % (Auto) Neut % (Auto) Lymph % (Auto) [place] % (Auto) Eos % (Auto) Baso % (Auto) Immature Gran # (Auto) Neut # (Auto) Lymph # (Auto) [place] # (Auto) Eos # (Auto) Baso # (Auto) Sodium 129 L Potassium 4.6 Chloride 79 L Carbon Dioxide 25 Anion Gap 25 BUN 103 H Creatinine 5.1 H Estimated GFR/1.73 m2 15 BUN/Creatinine Ratio 20 Glucose 151 H Calculated Osmolality 294 Calcium 10.0 Total Bilirubin 0.71 AST 13 ALT 22 Alkaline Phosphatase 119 Total Protein 10.0 H Albumin 4.6 Globulin 5.4 Albumin/Globulin Ratio 0.9 Amylase 255 H Lipase 137 H Urine Source Urine Color Urine Turbidity Urine pH Ur Specific [place] Urine Protein Ur Glucose (Stick) Ur Ketones (Stick) Urine Blood Urine Nitrite Urine Bilirubin Urobilinogen Dipstick Urine Leukocytes Urine WBC (Auto) Urine RBC (Auto) U Epithel Cells (Auto) Urine Bacteria (Auto) Urine Crystals Small Round Cells Urine Casts Urine Yeast-like Cells Urine Opiates Screen Ur Oxycodone Screen Ur Methadone, Qual Ur Barbiturates Screen Ur Phencyclidine Scrn Ur Amphetamines Screen U Benzodiazepines Scrn Urine Cocaine Screen U Cannabinoids Screen Orders Category Date Time Status Nursing- MD Consult Request ROUTINE Care 05/11/16 12:01 Active Saline Loc NOW Care 05/11/16 10:49 Active Physician/Provider Consults Routine Cons 05/11/16 12:01 Ordered NPO Diet 05/11/16 09:15 Active ABDOMEN/PELVIS W/O CONTRAST [CT] Stat Exams 05/11/16 11:59 Ordered US RENAL 2 (RETROPER) COMPLETE [US] Stat Exams 05/11/16 12:00 Ordered AMYLASE [CHEM] Stat Lab 05/11/16 09:12 Completed CBC WITH ELECTRONIC DIFF [HEME] Stat Lab 05/11/16 09:12 Completed COMPREHENSIVE METABOLIC PANEL [CHEM] Stat Lab 05/11/16 09:12 Completed LIPASE [CHEM] Stat Lab 05/11/16 09:12 Completed UA NIMS W/REFLEX CULT [URINALYSIS] Stat Lab 05/11/16 11:00 Completed UDS [URINE DRUG SCREEN] Stat Lab 05/11/16 11:00 Completed URINE MANUAL MICROSCOPIC [URINALYSIS] Stat Lab 05/11/16 11:00 Completed 0.9% Sodium Chloride Inj [Ns] 1,000 ml Med 05/11/16 10:49 Discontinued IV 999 mls/hr CefTRIAXONE 1 GM/NS [Rocephin 1 gm/Ns] 50 ml Med 05/11/16 11:40 Active IV NOW - CONSULTS/PCP/HOSPITALIST Notification #1 *Consult/PCP/Hospitalist*: Dr. Mcbride, hospitalist Time Discussed: 12:02 Reason/Comments: STEPHY, dehydration, uti Consult Disposition: Admit Departure - Departure Time of Disposition Order: 11:40 DIAGNOSIS: Acute kidney injury, Dehydration, Acute UTI Disposition: ADMITTED INPATIENT 09 Certified Medical Emergency: Emergent Condition: Stable Referrals: None,PCP [Primary Care Provider] - Attestation - Physician/ GERARD Attestation Patient care was provided by Advanced Practice Provider:: Yes Advanced Practice Provider:: Carolin Bruno Advanced Practice Provider documentation review:: The Mid-level provider documentation, treatment plan and medical decision making was reviewed by the physician who agrees with all treatment and medical decision making by the MLP.
[2016-05-11 11:40] LABS: URINE CASTS WHITE CELL PRESENT
[2016-05-11] MEDS ORDERED: ROCEPHIN 1 GM/NS 50 ML IV ONE (11:40)
--- NOTE | 2016-05-11 13:39 | Diag Imaging Result Document ---
PROCEDURE NAME: US RENAL 2 (RETROPER) COMPLETE - 05/11/2016 RENAL ULTRASOUND: COMPARISON: Abdominal ultrasound dated 05/01/2016. FINDINGS: The renal cortical echotexture appears to be slightly increased bilaterally, which is a nonspecific indicator of medical renal disease. There are a few simple-appearing renal cysts bilaterally with the largest on the left measuring up to 5.4 cm. No definite solid renal mass or hydronephrosis is identified. The right kidney measures 10.7 cm and the left kidney measures 10.8 cm in the greatest longitudinal axis. The right renal cortex measures up to 1.1 cm and the left renal cortex measures up to 1.3 cm in thickness. The urinary bladder is grossly unremarkable. IMPRESSION: A few simple-appearing renal cysts and suggestion of mild increased renal cortical echotexture, which is a nonspecific indicator of medical renal disease.
--- NOTE | 2016-05-11 13:44 | Diag Imaging Result Document ---
PROCEDURE NAME: ABDOMEN/PELVIS W/O CONTRAST - 05/11/2016 CT ABDOMEN AND PELVIS: A CT dose reduction protocol was used. COMPARISON: 01/06/2016. FINDINGS: There are stable bilateral renal cysts. No radiodense renal stones. No hydronephrosis or hydroureter. No bowel obstruction or inflammation. Urinary bladder, prostate, and rectum are normal. There is moderate calcified vascular disease of the distal aorta and peripheral arteries consistent with peripheral artery disease. This is unusual given the patient's young age. IMPRESSION: No acute disease. [facility]
[2016-05-11] MEDS ORDERED: ZOFRAN IV PRN (16:23)
[2016-05-11] MEDS ORDERED: TYLENOL PO PRN (16:23)
[2016-05-11] MEDS: NS 1,000 ML IV SCH (16:49)
--- NOTE | 2016-05-11 17:32 | HISTORY AND PHYSICAL ---
PRIMARY CARE PROVIDER: No one. CHIEF COMPLAINT: Abdominal pain. HISTORY OF PRESENT ILLNESS: Mr. Allen Cardona is a 45-year-old, male, he is in no acute distress but states that he has been having left upper and lower quadrant pain for about 2 weeks. He has associated decreased appetite, weakness, insomnia. Apparently 10 days ago he came to the ER with same complaints that he states abdominal pain had just started a couple days prior to but the same day he came into the ER he states he took Aleve for a headache and developed swelling of his lips, eyes and hands and that is what brought him in at that time. He is now back today with complaints of continued abdominal pain. He states that he has normal bowel movements that are normal in color. Findings find that he does have some mild pancreatitis dehydration with STEPHY. He states that his urine output is darker and less in volume but no dysuria or foul smell. We will follow up with abdominal CT and ultrasound. Admit to the medical floor and consult Dr. Herron. PAST MEDICAL HISTORY: None. PAST SURGICAL HISTORY: None. SOCIAL HISTORY: One pack per day smoker. Denies alcohol. 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 FAMILY HISTORY: Mother has diabetes and hypertension. REVIEW OF SYSTEMS: Fourteen point review of systems are complete and all were negative except for those mentioned in the above HPI. ALLERGIES: No known drug allergies. HOME MEDICATIONS: None. LABORATORY DATA: White blood cells 10,000. Hemoglobin 17, hematocrit 52, platelet count 470,000. Sodium 129, potassium 4.6. BUN 103, creatinine 5.1, glucose 151, calcium 10. Phosphorus 6.4, total protein 10, amylase 255, lipase 137, urinalysis, 50 protein, moderate blood, large leukocytes, too numerous to count white blood cells, 2+ bacteria. Urine drug screen negative. IMAGING: Renal ultrasound: A few simple appearing renal cysts with suggestion of mild increased renal cortical echotexture which is a nonspecific indicator for medical renal disease. Abdominal pelvic CT: No acute findings. ASSESSMENT AND PLAN: 1. Acute kidney injury secondary to severe dehydration. We will do IV fluid hydration. Consult Dr. Herron to do renal work up. Renal ultrasound does not show renal artery stenosis. We will follow daily labs. 2. Urinary tract infection per urinalysis. We will continue with Rocephin for coverage and follow up with culture. 3. Per labs mild pancreatitis. Amylase is 255 and lipase is 137, this is likely secondary to dehydration. 4. Tobacco abuse. Cessation discussed. Patient refused nicotine patch. 5. Deep venous thrombosis prophylaxis. Heparin. 6. Gastrointestinal prophylaxis. Proton pump inhibitor. Dictated by MAGNOLIA Louis for Tonio Lu MD
[2016-05-11] MEDS: HEPARIN SUBQ SCH (21:49)
[2016-05-12] MEDS: NS 1,000 ML IV SCH ×2 (00:32→08:40)
[2016-05-12 06:11] VITALS: BP 129/78
[2016-05-12] MEDS ORDERED: PRILOSEC PO SCH (07:00)
[2016-05-12 07:04] LABS: MANUAL DIFF NEEDED? NO
[2016-05-12 07:08] LABS: BASO% 0.1 % (0.0-0.8); EOS# 0.01 X1000 (0.0-0.7); EOS% 0.1 % (0.0-10.0); HEMATOCRIT 45.2 % (42.0-52.0); HEMOGLOBIN 15.4 g/dL (14.0-18.0); IMM GRAN# 0.02 X1000 (0.0-0.04); IMM GRAN% 0.2 % (0.0-0.5); LYMPH# 1.81 X1000 (1.2-3.4); LYMPH% 20.5 % (20.5-51.1); MCH 28.9 PG (27-31); MCHC 34.1 g/dL (33-37); MONO% 18.1 % (1.7-9.3); PLT 394 X1000 (130-400); RBC 5.32 XMIL (4.7-6.1)
[2016-05-12 07:43] LABS: ALBUMIN 3.7 g/dL (3.5-5.0); CALCIUM 8.9 mg/dL (8.8-10.2); MAGNESIUM 3.2 mg/dL (1.5-2.7); TOTAL BILIRUBIN 0.75 mg/dL (0.20-1.00); TOTAL PROTEIN 7.6 g/dL (6.3-8.3)
[2016-05-12] MEDS: HEPARIN SUBQ SCH (08:40)
[2016-05-12] MEDS ORDERED: ROCEPHIN 1 GM/NS 50 ML IV SCH (12:00)
--- NOTE | 2016-05-12 16:17 | CONSULTATION ---
DATE OF CONSULTATION: 05/12/2016 NEPHROLOGY CONSULT REASON FOR CONSULTATION: Acute kidney injury. HISTORY OF PRESENT ILLNESS: Mr. Cardona is a 45-year-old black male without past medical history of which he is aware. He takes no medications but does not have ongoing followup with a physician. He presented to the Emergency Room with ongoing nausea, vomiting, with some diarrhea. He developed a headache and took Aleve, which caused head and hand swelling, and so he sought attention in the Emergency Room. His symptoms of swelling have resolved, but he had significant acute renal failure with BUN 103, creatinine 5.1. He was admitted to the hospital and treated with IV fluids overnight. Total intake and output are not recorded, but his creatinine is improved from 5.1 to 2.1. He had a recent admission to the hospital with acute kidney injury with his maximum creatinine being approximately 3. His discharge packet listed allergic reaction as his diagnosis. PAST MEDICAL HISTORY: As above. ALLERGIES: Naproxen. SOCIAL HISTORY: Otherwise noncontributory. FAMILY HISTORY: Otherwise noncontributory. REVIEW OF SYSTEMS: Otherwise noncontributory. PHYSICAL EXAMINATION: Vital signs: Blood pressure 129/78, heart rate 69, respiration 18, afebrile. General: He is a middle-aged healthy-appearing man in no distress. Skin: Warm and dry. Conjunctivae are pink. Pupils are equal. Neck: Neck veins are not visible. Heart: Regular with no gallops. Lungs: Lungs have equal breath sounds. No crackles. Abdomen: Soft and nontender. Bowel sounds are present. Extremities: Extremities have no edema, clubbing, or cyanosis. IMPRESSION: Acute kidney injury. Secondary to intravascular volume depletion. Improving. Baseline creatinine 1.3. Renal ultrasound performed on the with few simple cysts but no other acute findings. No changes are required today. Continue IV fluids.
--- NOTE | 2016-05-13 05:55 | EKG Report ---
Test Performed on : 05/12/2016 06:32:33 AM Test Reason : chest pain Blood Pressure : / mmHG Vent. Rate : 071 BPM Atrial Rate : 071 BPM P-R Int : 120 ms QRS Dur : 086 ms QT Int : 396 ms P-R-T Axes : 075 009 063 degrees QTc Int : 430 ms Normal sinus rhythm. Normal ECG No previous ECGs available Unconfirmed Result
--- NOTE | 2016-05-13 07:01 | DISCHARGE SUMMARY ---
ADMISSION DATE: 05/11/2016 DISCHARGE DATE: 05/12/2016 DISCHARGE DIAGNOSES: 1. Acute kidney injury secondary to severe dehydration, improved. 2. Urinary tract infection, under treatment. 3. Tobacco abuse. CONSULTATIONS: Dr. Herron from nephrology. PROCEDURES: CT of abdomen and pelvis showed no acute disease. Renal ultrasound showed a few simple appearing renal cysts and suggestion of mildly increased renal cortical echotexture which is a nonspecific indicator of medical renal disease. HOSPITAL COURSE: This is a 45-year-old, male who presented to the emergency department complaining of left upper and lower quadrant pain for about 2 weeks. He has associated decreased appetite, weakness, insomnia. Apparently, he came to the hospital 10 days ago for the same complaints. Also, when he was worked up in the ER, he was found to have worsening STEPHY and elevated mild pancreatitis. Patient was admitted for further evaluation and treatment. Dr. Herron was consulted for this patient. Also, the creatinine has improved markedly from 5.1-2.1 and GFR has gone up from 15 to 43. We have checked with nephrology and they are okay to let him go. The patient will be seen in the office. Patient is going to be calling to schedule an appointment with nephrology. The patient is being discharged in stable condition. DISCHARGE PHYSICAL EXAMINATION: Vital Signs: Temperature 97.9 degrees, heart rate 69, respiratory rate 18, blood pressure 129/78, O2 saturation 100% on room air. General Examination: This is a 45-year-old, male, lying in bed, in no acute distress. HEENT: Head is normocephalic and atraumatic. Anicteric sclerae and pale conjunctivae. Mucous membranes moist. Neck: Supple. No JVD noted. No carotid bruits. No lymphadenopathy. No thyromegaly. Cardiovascular Examination: S1 and S2 heard. No murmurs, gallops, or rubs. Regular rate and rhythm. Respiratory Examination : Clear bilaterally to auscultation. No work of breathing or using accessory muscles. Abdomen: Soft, nontender to palpation. Bowel sounds present. No organomegaly. Extremities: No clubbing, cyanosis, or edema. Peripheral pulses present in both legs. Neurological Examination: Patient is alert and oriented x3. Able to move her extremities. Cranial nerves 2-12 are grossly normal. DISCHARGE DISPOSITION: To home to self-care. LIST OF MEDICATIONS: 1. Omnicef 300 mg 1 tablet p.o. b.i.d. for 7 days. 2. Omeprazole 20 mg 1 tablet p.o. daily. FOLLOWUP: With Dr. Noe Herron. The patient is supposed to calling to get an appointment.
== END 2016-05-12 14:11 | disposition home or self-care (01) | DRG 682 ==
LOC: ED 08:24 → EDIPHOLD 14:19 → 3N 16:35
PROVIDERS: ATTEND Internal Medicine
DX: N17.9 Acute kidney failure, unspecified (principal); K85.90 Acute pancreatitis without necrosis or infection, unspecified; N39.0 Urinary tract infection, site not specified; F17.210 Nicotine dependence, cigarettes, uncomplicated; Z71.6 Tobacco abuse counseling; E86.0 Dehydration
CPT/HCPCS: 36415; 74176; 76770; 80053; 81001; 82150; 82550; 83690; 83735; 84100; 85025; 87077; 87088; 87186; 93005; 96365; G0480; J0696; J1644; J7030; 80324; 80345; 80346; 80349; 80353; 80358; 80361; 80365; 83992